=== PATIENT | female | born 1970 | race Caucasian/White ===

== ENCOUNTER 2020-10-05 21:46 | Emergency (ER) | payer SELFPAY ==
--- OUTSIDE RECORDS SUMMARY | 2020-10-05 21:49 | XMS REPORT | Continuity of Care Document ---
:1970 Author Organization [facility] t Address [address] [place] [address] Care Team Providers Name Role Phone Unavailable Unavailable Unavailable Problems Condition Condition Condition Status Onset Resolution Last Treating Co mments Source Name Details Category Date Date Treatment Clinician Date Drug abuse Drug Abuse Problem Active 2017-04 [facility]: [facility] 00 Group Low back Low Back Problem Active 2017-04 [facility] St[facility] 05[facility]: [facility] 00 Group Hyperlipid Hyperlipid Problem Active [facility] emia emia 04-21 da 00:00: [facility] 00 Group Allergies, Adverse Reactions, Alerts Allergy Allergy Status Severity Reaction(s) Onset Inactive Treating Comm ents Source Name Type Date Date Clinician Lipitor Allergy Active [facility] Social History Smoking Status Start Date Stop Date Source Current Every Day Smoker [facility] Medications This patient has no known medications. Vital Signs Vital Name Observation Time Observation Value Comments Source BP Diastolic 2020-09-23 00:00:00 80 mm[Hg] [facility] Height 2020-09-23 00:00:00 63 [in_i] [facility] BMI (Body Mass 2020-09-23 00:00:00 29 kg/m2 [facility] BP Systolic 2020-09-23 00:00:00 129 mm[Hg] [facility] Body Weight 2020-09-23 00:00:00 2615 [oz_av] [facility] BP Diastolic 2019-05-14 00:00:00 71 mm[Hg] [facility] Height 2019-05-14 00:00:00 63 [in_i] [facility] BMI (Body Mass 2019-05-14 00:00:00 26.2 kg/m2 [facility] BP Systolic 2019-05-14 00:00:00 123 mm[Hg] [facility] Body Weight 2019-05-14 00:00:00 2368 [oz_av] [facility] BP Diastolic 2019-05-10 00:00:00 75 mm[Hg] [facility] Height 2019-05-10 00:00:00 63 [in_i] [facility] BMI (Body Mass 2019-05-10 00:00:00 27.4 kg/m2 [facility] BP Systolic 2019-05-10 00:00:00 121 mm[Hg] [facility] Body Weight 2019-05-10 00:00:00 2473 [oz_av] [facility] Procedures Procedure Date / Time Performing Clinician Source Performed MRI, brain, w/o contrast 2020-09-23 00:00:00 [facility] MAMMO, screening, 2020-09-23 00:00:00 [facility], bilateral [facility] Plan of Care Planned Activity Planned Date Details Comments Source Diagnostic Test 2020-09-23 lipid panel, serum [facility] 00:00:00 [code = lipid panel, Group serum] Diagnostic Test 2020-09-23 CMP, serum or plasma [facility]ending 00:00:00 [code = CMP, serum Group or plasma] Diagnostic Test 2020-09-23 CBC w/ auto diff [facility] 00:00:00 [code = CBC w/ auto Group diff] Diagnostic Test 2020-09-23 TSH, serum or plasma [facility] Pending 00:00:00 [code = TSH, serum Group or plasma] Diagnostic Test 2020-09-23 hemoglobin A1c, QN, [facility] 00:00:00 blood [code = Group hemoglobin A1c, QN, blood] Encounters Start End Encounter Admission Attending Care Care Encounter Source Date/Time Date/Time Type Type Clinicians Facility Department ID 2020-09-23 2020-09-23 Quirino KEMP [place] - [id number] [facility] 00:00:00 00:00:00 Sohail Ruth Medical Medical MD: [address] [facility] [address], [place] [address] , Ph. 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 2019-05-10 2019-05-10 Leanne VILA [place] - [id number] [facility] 00:00:00 00:00:00 [facility] Spe[facility] Medical STATIONARY ENGINEER APPRENTICE: [address] [facility] [address], [place] [address] , Ph. Results Test Description Test Time Test Comments Results Result Comments Source rapid strep group A, throat 2019-05-14 12:10:00 Test Item Value Reference Range Interpretation Comme nts Strep Result (test code = Strep Result) [facility] 13:19:00 Test Item Value Reference Range Interpretation Comments Flu (test code = Flu) [facility]10 13:19:00 Test Item Value Reference Range Interpretation Comments Flu (test code = Flu) negative [facility]
[2020-10-05 22:13] LABS: Urine Blood 3+ (Negative); Urine Glucose Negative (Negative); Urine Protein 2+ (Negative); Urine Specific Gravity 1.025 (1.005-1.030); Urine pH 6.5 (5.0-7.0)
[2020-10-05 22:17] LABS: Absolute Lymphocytes (CBC) 2.3 K/uL (0.7-4.9); Basophils % 0.6 % (0-1.3); Lymphocytes % 15.8 % (15.3-44.8); MPV 8.7 fL (7.6-11.3); RBC Red Blood Cell Count 3.98 M/uL (3.86-4.86)
[2020-10-05 22:20] LABS: Urine Specific Gravity/Preg 1.025 (1.005-1.030)
[2020-10-05 22:21] LABS: Urine Bacteria >50 /HPF (<20); Urine RBC <5 /HPF (NONE SEEN)
[2020-10-05] MEDS ORDERED: NA CHLORIDE 0.9% 1,000 ML ONE (22:25)
[2020-10-05] MEDS ORDERED: ONDANSETRON 4 MG/2 ML VIAL ONE (22:25)
[2020-10-05] MEDS ORDERED: KETOROLAC 30 MG/ML INJ ONE (22:25)
[2020-10-05 22:33] LABS: ALT/SGPT 24 U/L (12-78); AST/SGOT 18 U/L (15-37); Albumin 3.7 g/dL (3.4-5.0); Alkaline Phosphatase 75 U/L (45-117); BUN Blood Urea Nitrogen 14 mg/dL (7-18); Bicarbonate 25 mmol/L (21-32); Bilirubin Direct < 0.1 mg/dL (0-0.2); Bilirubin Total 0.4 mg/dL (0.2-1.0); Glucose Level 110 mg/dL (74-106); Lipase 120 U/L (73-393); Protein, Total 7.7 g/dL (6.4-8.2); Sodium Level 137 mmol/L (136-145)
--- NOTE | 2020-10-05 22:48 | EDPHYS ---
Physician Documentation [facility] Name: Comfort Royal Age: 50 yrs Sex: Female : 1970 Arrival Date: 10/05/2020 Time: 21:51 Bed 6 Private MD: ED Physician Hadley Cedeno HPI: 10/06 00:23 This 50 yrs old Female presents to ER via Ambulatory with complaints of kb Abdominal Pain, Back Pain, Nausea. 00:23 The patient has not recently seen a physician. kb 00:24 The patient presents with urinary symptoms, dysuria, frequency. Onset: The kb symptoms/episode began/occurred 3 day(s) ago. Modifying factors: The symptoms are alleviated by nothing, the symptoms are aggravated by urinating. Associated signs and symptoms: Pertinent positives: dysuria, urinary frequency. Severity of symptoms: At their worst the symptoms were moderate, in the emergency department the symptoms are unchanged. The patient has not experienced similar symptoms in the past. Pt reports urinary frequency, dysuria, suprapubic pain and back pain that started Monday. 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 - Social history:: Smoking status: Reported history of juuling and/or vaping. Patient uses alcohol, occasionally. Patient/guardian denies using street drugs. ROS: 10/06 00:22 Constitutional: Negative for fever, chills, and weight loss. kb Abdomen/GI: Positive for abdominal pain, of the suprapubic area. Back: Positive for flank pain, bilaterally. : Positive for urinary symptoms, urinary frequency, burning with urination. All other systems are negative. Exam: 00:23 Constitutional: This is a well developed, well nourished patient who is awake, alert, kb and in no acute distress. Head/Face: Normocephalic, atraumatic. ENT: Moist Mucous membranes Cardiovascular: Regular rate and rhythm with a normal S1 and S2. No gallops, murmurs, or rubs. No pulse deficits. Respiratory: Respirations even and unlabored. No increased work of breathing, no retractions or nasal flaring. Skin: Warm, dry with normal turgor. Normal color. MS/ Extremity: Pulses equal, no cyanosis. Neurovascular intact. Full, normal range of motion. Neuro: Awake and alert, GCS 15, oriented to person, place, time, and situation. Moves all extremities. Normal gait. Psych: Awake, alert, with orientation to person, place and time. Behavior, mood, and affect are within normal limits. 00:23 Abdomen/GI: Inspection: abdomen appears normal, Palpation: soft, in all quadrants, mild abdominal tenderness, in the suprapubic area. 00:23 Back: CVA tenderness, that is mild, is noted bilaterally. Vital Signs: 10/05 21:58 BP 129 / 73; Pulse 95; Resp 16 S; Temp 98.6(O); Pulse Ox 99% on R/A; Weight 73.03 kg bb (R); Height 5 ft. 3 in. (160.02 cm) (R); Pain 9/10; 23:22 BP 113 / 60; Pulse 82; Resp 16 S; Pulse Ox 99% on R/A; ea 21:58 Body Mass Index 28.52 (73.03 kg, 160.02 cm) bb MDM: 21:56 Patient medically screened. kb 10/06 00:20 Data reviewed: vital signs, nurses notes. Data interpreted: Pulse oximetry: on room air kb is 99 %. Interpretation: normal. Counseling: I had a detailed discussion with the patient and/or guardian regarding: the historical points, exam findings, and any diagnostic results supporting the discharge/admit diagnosis, lab results, the need for outpatient follow up, a family practitioner, to return to the emergency department if symptoms worsen or persist or if there are any questions or concerns that arise at home. ED course: Discussed findings with pt. Pt in agreement with plan to use oral antibiotics for UTI, will return for inability to tolerate PO intake/medications, worsening symptoms or any other concerns. . 10/05 22:00 Order name: Urine Microscopic Only; Complete Time: :23 kb 10/05 22:00 Order name: Basic Metabolic Panel; Complete Time: 22:42 kb 10/05 22:00 Order name: CBC with Diff; Complete Time: :23 kb 10/05 22:00 Order name: Hepatic Function; Complete Time: 22:42 kb 10/05 22:00 Order name: Lipase; Complete Time: 22:42 kb 10/05 22:12 Order name: Urine Dipstick-Ancillary EDWV 10/05 22:00 Order name: Urine Dipstick-Ancillary (obtain specimen); Complete Time: 22:16 kb 10/05 22:14 Order name: Urine --Ancillary (enter results); Complete Time: 22:21 mw2 10/05 22:22 Order name: Urine Culture EDWV 10/05 22:00 Order name: IV Saline Lock; Complete Time: 22:15 kb 10/05 22:00 Order name: Labs collected and sent; Complete Time: 22:16 kb Administered Medications: 10/05 22:05 Drug: NS 0.9% 1000 ml Route: IV; Rate: 1000 ml; Site: right antecubital; ea 23:23 Follow up: IV Status: Completed infusion; IV Intake: 1000ml ea 22:06 Drug: Zofran (Ondansetron) 4 mg Route: IVP; Site: right antecubital; ea 23:23 Follow up: Response: No adverse reaction; Nausea is decreased ea 22:07 Drug: TORadol - (ketorolac) 15 mg Route: IVP; Site: right antecubital; ea 23:22 Follow up: Response: No adverse reaction; Pain is decreased ea 22:48 Drug: Rocephin (cefTRIAXone) 1 grams Route: IV; Rate: calculated rate; Site: right ea antecubital; 23:22 Follow up: Response: No adverse reaction; IV Status: Completed infusion ea 22:58 Drug: Pyridium (phenazopyridine) 100 mg Route: PO; ea 23:22 Follow up: Response: No adverse reaction ea Disposition: 10/06 02:03 Co-signature as Attending Physician, Hadley Cedeno MD. pkl Disposition: 10/05/20 22:47 Discharged to Home. Impression: Urinary tract infection, site not specified. - Condition is Stable. - Discharge Instructions: Urinary Tract Infection, Adult, [id number]. - Prescriptions for Augmentin 875- 125 mg Oral Tablet - take 1 tablet by ORAL route every 12 hours for 10 days; 20 tablet. Pyridium 200 mg Oral Tablet - take 1 tablet by ORAL route every 8 hours for 3 days; 9 tablet. - Medication Reconciliation Form, Thank You Letter, Antibiotic Education, Prescription Opioid Use form. - Follow up: Emergency Department; When: As needed; Reason: Worsening of condition. Follow up: Private Physician; When: 2 - 3 days; Reason: Recheck today's complaints, Continuance of care, Re-evaluation by your physician. Signatures: Dispatcher [employer] EDWV Tracy Bahena, Hadley Williamson MD MD pkl Ballard, Brenda, RN RN Melodie Buenrostro RN RN delmar Corrections: (The following items were deleted from the chart) 10/05 23:24 22:47 10/05/2020 22:47 Discharged to Home. Impression: Urinary tract infection, site ea not specified. Condition is Stable. Forms are Medication Reconciliation Form, Thank You Letter, Antibiotic Education, Prescription Opioid Use. Follow up: Emergency Department; When: As needed; Reason: Worsening of condition. Follow up: Private Physician; When: 2 - 3 days; Reason: Recheck today's complaints, Continuance of care, Re-evaluation by your physician. kb
--- NOTE | 2020-10-05 22:48 | ER ---
Nurse's Notes [facility] Name: Comfotr Royal Age: 50 yrs Sex: Female : 1970 Arrival Date: 10/05/2020 Time: 21:51 Bed 6 Private MD: Diagnosis: Urinary tract infection, site not specified Presentation: 10/05 21:58 Chief complaint: Patient states: she started having suprapubic pain on Monday and pain bb with urination now the pain is in her upper abdomen and back and she is nauseous. Coronavirus screen: At this time, the client does not indicate any symptoms associated with coronavirus-19. Ebola Screen: No symptoms or risks identified at this time. Initial Sepsis Screen: Does the patient meet any 2 criteria? No. Patient's initial sepsis screen is negative. Does the patient have a suspected source of infection? No. Patient's initial sepsis screen is negative. Risk Assessment: Do you want to hurt yourself or someone else? Patient reports no desire to harm self or others. Onset of symptoms was October 04, 2020. 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 - Social history:: Smoking status: Reported history of juuling and/or vaping. Patient uses alcohol, occasionally. Patient/guardian denies using street drugs. Screenin:00 Abuse screen: Denies threats or abuse. Nutritional screening: No deficits noted. ea Tuberculosis screening: No symptoms or risk factors identified. 22:00 Fall Risk IV access (20 points). ea Assessment: 22:13 General: Appears uncomfortable, Behavior is calm, cooperative, appropriate for age. ea Pain: Complains of pain in lower abd and paulina flank. Neuro: Level of Consciousness is awake, alert, obeys commands, Oriented to person, place, time, situation, Appropriate for age. Cardiovascular: No deficits noted. Capillary refill < 3 seconds Patient's skin is warm and dry. Respiratory: No deficits noted. Airway is patent Respiratory effort is even, unlabored, Respiratory pattern is regular, symmetrical. GI: Bowel sounds present X 4 quads. Abd is soft and non tender X 4 quads. Reports lower abdominal pain, nausea. : Reports burning with urination, pain in bilateral in suprapubic area flank(s). Derm: Skin is pink, warm \T\ dry. 23:22 Reassessment: Patient appears in no apparent distress at this time. Patient and/or ea family updated on plan of care and expected duration. Pain level reassessed. Patient is alert, oriented x 3, equal unlabored respirations, skin warm/dry/pink. Patient states symptoms have improved. Vital Signs: 21:58 BP 129 / 73; Pulse 95; Resp 16 S; Temp 98.6(O); Pulse Ox 99% on R/A; Weight 73.03 kg bb (R); Height 5 ft. 3 in. (160.02 cm) (R); Pain 9/10; 23:22 BP 113 / 60; Pulse 82; Resp 16 S; Pulse Ox 99% on R/A; ea 21:58 Body Mass Index 28.52 (73.03 kg, 160.02 cm) bb ED Course: 21:51 Patient arrived in ED. as 21:54 Melodie Dodson, MAURICE is Primary Nurse. ea 21:56 Tarcy Bahena FNP-C is PHCP. kb 21:56 Hadley Cedeno MD is Attending Physician. kb 22:00 Triage completed. bb 22:00 Arm band placed on Patient placed in an exam room, on a stretcher, on pulse oximetry. bb Family accompanied patient. 22:00 Patient has correct armband on for positive identification. Bed in low position. Call ea light in reach. Side rails up X2. 22:02 No provider procedures requiring assistance completed. Initial lab(s) drawn, by me, ea sent to lab. Inserted saline lock: 20 gauge in right antecubital area, using aseptic technique. Blood collected. 23:23 IV discontinued, intact, bleeding controlled, No redness/swelling at site. Pressure ea dressing applied. Administered Medications: 22:05 Drug: NS 0.9% 1000 ml Route: IV; Rate: 1000 ml; Site: right antecubital; ea 23:23 Follow up: IV Status: Completed infusion; IV Intake: 1000ml ea 22:06 Drug: Zofran (Ondansetron) 4 mg Route: IVP; Site: right antecubital; ea 23:23 Follow up: Response: No adverse reaction; Nausea is decreased ea 22:07 Drug: TORadol - (ketorolac) 15 mg Route: IVP; Site: right antecubital; ea 23:22 Follow up: Response: No adverse reaction; Pain is decreased ea 22:48 Drug: Rocephin (cefTRIAXone) 1 grams Route: IV; Rate: calculated rate; Site: right ea antecubital; 23:22 Follow up: Response: No adverse reaction; IV Status: Completed infusion ea 22:58 Drug: Pyridium (phenazopyridine) 100 mg Route: PO; ea 23:22 Follow up: Response: No adverse reaction ea Intake: 23:23 IV: 1000ml; Total: 1000ml. ea Outcome: 22:47 Discharge ordered by . kb 23:23 Discharged to home ambulatory, with significant other. ea 23:23 Condition: stable 23:23 Discharge instructions given to patient, Instructed on discharge instructions, follow up and referral plans. medication usage, Demonstrated understanding of instructions, follow-up care, medications, Prescriptions given X 2. 23:24 Patient left the ED. ea Signatures: Tracy Bahena, MARISABELC KINGA-Felecia Tadeo Brenda, RN RN Melodie Buenrostro RN RN ea
[2020-10-05] MEDS ORDERED: NA CHLORIDE 0.9% 50 ML ONE (23:06)
[2020-10-05] MEDS ORDERED: CEFTRIAXONE 1000 MG/VIAL ONE (23:06)
[2020-10-05] MEDS ORDERED: PHENAZOPYRIDINE 100MG TAB PO ONE (23:17)
[2020-10-06 00:28] VITALS: TEMP 98.6; O2SAT 99
[2020-10-06 00:30] VITALS: BP 113/60
== END 2020-10-05 23:24 | disposition home or self-care (01) ==
LOC: ER 21:46
DX: N39.0 Urinary tract infection, site not specified (principal); F17.290 Nicotine dependence, other tobacco product, uncomplicated
CPT/HCPCS: 36415; 80048; 80076; 81003; 81015; 81025; 83690; 85025; 87077; 87086; 87088; 87186; 96361; 96365; 96375; 99284; J2405; J7030

== ENCOUNTER 2021-10-28 19:08 | Emergency (ER) | payer SELFPAY ==
[2021-10-28] MEDS ORDERED: dexAMETHasone 10 MG/ML VIAL ONE (20:47)
[2021-10-28] MEDS ORDERED: NA CHLORIDE 0.9% 1,000 ML ONE (20:48)
[2021-10-28] MEDS ORDERED: DIPHENHYDRAMINE 50 MG/ML VIAL ONE (20:49)
[2021-10-28] MEDS ORDERED: METOCLOPRAMIDE 10 MG/2mL INJ ONE (20:51)
[2021-10-28 21:14] LABS: Absolute Lymphocytes (CBC) 0.7 K/uL (0.7-4.9); Hematocrit 37.3 % (36.0-45.0); Lymphocytes % 18.3 % (15.3-44.8); MCV 88.6 fL (80-100); MPV 8.2 fL (7.6-11.3)
[2021-10-28 21:15] LABS: Protime INR 1.09
[2021-10-28 21:24] LABS: Potassium 3.5 mmol/L (3.5-5.1)
[2021-10-28] MEDS ORDERED: OSELTAMIVIR 75 MG CAP ONE (21:53)
[2021-10-28] MEDS ORDERED: BEBTELOVIMAB 175 MG/2 ML VIAL IV ONE (21:54)
--- NOTE | 2021-10-28 22:30 | EDPHYS ---
Physician Documentation [facility] Name: Comfort Royal Age: 51 yrs Sex: Female : 1970 Arrival Date: 10/28/2021 Time: 19:09 Bed 2 Private MD: ED Physician Ino Horton HPI: 10/28 20:35 This 51 yrs old Female presents to ER via Ambulatory with complaints of Decreased cp Appetite, Headache. 20:35 The patient complains of pain to the top of head, forehead, right spiritism and left cp spiritism. The patient describes the headache as aching, constant. Onset: The symptoms/episode began/occurred this morning. Associated signs and symptoms: Pertinent positives: fever, nausea, body aches, Pertinent negatives: altered mental status, neck stiffness, paresthesias, vision changes. Severity of symptoms: in the emergency department the pain is unchanged, despite home interventions. 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 - Social history:: Smoking status: Patient denies any tobacco usage or history of. ROS: 20:40 Constitutional: Positive for body aches, poor PO intake, Negative for fever. cp 20:40 Eyes: Negative for injury, pain, redness, and discharge. cp 20:40 ENT: Positive for sore throat, Negative for drainage from ear(s), ear pain, difficulty swallowing, difficulty handling secretions. 20:40 Cardiovascular: Negative for chest pain. 20:40 Respiratory: Negative for cough, shortness of breath, wheezing. 20:40 Abdomen/GI: Positive for nausea, Negative for abdominal pain, vomiting, diarrhea, constipation. 20:40 Skin: Negative for rash. 20:40 Neuro: Positive for headache, Negative for altered mental status, weakness. 20:40 All other systems are negative. Exam: 20:45 Constitutional: The patient appears in no acute distress, alert, awake, non-toxic, well cp developed, well nourished, uncomfortable. 20:45 Head/Face: Normocephalic, atraumatic. cp 20:45 Eyes: Periorbital structures: appear normal, Pupils: equal, round, and reactive to light and accomodation, Extraocular movements: intact throughout, Conjunctiva: normal, no exudate, no injection, Sclera: no appreciated abnormality, Lids and lashes: appear normal, bilaterally. 20:45 ENT: External ear(s): are unremarkable, Ear canal(s): are normal, clear, TM's: dullness, bilaterally, Nose: is normal, Mouth: Lips: moist, Oral mucosa: pink and intact, moist, Posterior pharynx: Airway: no evidence of obstruction, patent, Tonsils: are normal in appearance, swelling, is not appreciated, erythema, that is mild, exudate, is not appreciated. 20:45 Neck: ROM/movement: is normal, is supple, without pain, no range of motions limitations, no meningismus, Lymph nodes: no appreciated lymphadenopathy. 20:45 Chest/axilla: Inspection: normal. 20:45 Cardiovascular: Rate: normal, Rhythm: regular. 20:45 Respiratory: the patient does not display signs of respiratory distress, Respirations: normal, no use of accessory muscles, no retractions, labored breathing, is not present, Breath sounds: are clear throughout, no decreased breath sounds, no stridor, no wheezing. 20:45 Abdomen/GI: Inspection: abdomen appears normal, Palpation: abdomen is soft and non-tender, in all quadrants. 20:45 Back: pain, is absent, ROM is normal. 20:45 Skin: cellulitis, is not appreciated, no rash present. 20:45 Neuro: Orientation: to person, place \T\ time. Mentation: is normal, Cerebellar function: is grossly normal, Motor: moves all fours, strength is normal, Sensation: is normal. Vital Signs: 19:29 BP 123 / 75; Pulse 94; Resp 19; Temp 99.1; Pulse Ox 98% on R/A; Weight 72.57 kg; Height kd3 5 ft. 4 in. (162.56 cm); Pain 8/10; 20:05 BP 113 / 63; Pulse 84; Resp 16 S; Temp 99.7(O); Pulse Ox 99% on R/A; aa9 19:29 Body Mass Index 27.46 (72.57 kg, 162.56 cm) kd3 MDM: 20:10 Patient medically screened. 22:28 Data reviewed: vital signs, nurses notes, lab test result(s). 22:28 Differential diagnosis: meningitis, meningoencephalitis, migraine, tension headache, cp COVID-19, influenza, strep throat. Counseling: I had a detailed discussion with the patient and/or guardian regarding: the historical points, exam findings, and any diagnostic results supporting the discharge/admit diagnosis, lab results, to return to the emergency department if symptoms worsen or persist or if there are any questions or concerns that arise at home. Response to treatment: the patient's symptoms have markedly improved after treatment. 22:28 ED course: VSS. Patient appears non-toxic and no signs of respiratory distress. Will cp discharge to home for continued monitoring. 10/28 19:39 Order name: Flu; Complete Time: 20:29 kd3 10/28 20:29 Interpretation: Normal except: FLUB FLU B ----- POSITIVE for FLU B protein antigen. 10/28 19:39 Order name: Strep; Complete Time: 21:18 kd3 10/28 20:10 Order name: SARS-COV-2 RT PCR; Complete Time: 21:18 [facility] 10/28 21:18 Interpretation: Results reviewed. 10/28 20:31 Order name: CBC with Diff; Complete Time: 15:05 10/28 21:21 Interpretation: Normal except: WBC 3.8; MN% 27.9. 10/28 20:31 Order name: BMP; Complete Time: 21:48 10/28 21:48 Interpretation: Normal except: NA 135; GFR 73. 10/28 20:31 Order name: PT-INR; Complete Time: 21:18 10/28 20:36 Order name: Throat Culture EDDE 10/28 20:31 Order name: IV; Complete Time: 21:06 cp Administered Medications: 21:03 Drug: Reglan (metoCLOPramide) 10 mg Route: IVP; Site: left antecubital; aa9 21:08 Follow up: Response: No adverse reaction aa9 21:03 Drug: Benadryl (diphenhydrAMINE) 12.5 mg Route: IVP; Site: left antecubital; aa9 21:08 Follow up: Response: No adverse reaction aa9 21:03 Drug: Decadron - Dexamethasone 10 mg Route: IVP; Site: left antecubital; aa9 21:07 Follow up: Response: No adverse reaction aa9 21:04 Drug: NS 0.9% 1000 ml Route: IV; Rate: 1 bolus; Site: left antecubital; aa9 23:22 Follow up: Response: No adverse reaction; IV Status: Completed infusion; IV Intake: aa9 1000ml 21:50 Drug: Tamiflu (oseltamivir) 75 mg Route: PO; aa9 23:21 Follow up: Response: No adverse reaction aa9 21:51 Drug: bebtelovimab 175 mg Route: IV; Rate: calculated rate; Site: left antecubital; aa9 23:21 Follow up: Response: No adverse reaction; IV Status: Completed infusion aa9 Disposition Summary: 10/28/21 22:29 Discharge Ordered Location: Home cp Problem: new cp Symptoms: have improved cp Condition: Stable cp Diagnosis - SARS-associated coronavirus as the cause of diseases classified elsewhere cp - Influenza due to other identified influenza virus with other manifestations cp - Headache cp Followup: cp - With: Private Physician - When: 1 - 2 days - Reason: Worsening of condition Discharge Instructions: - Discharge Summary Sheet cp - Influenza, Adult cp - Aspirin and Your Heart cp - COVID-19 cp - COVID-19: What Your Test Results Mean - [facility] cp - Form - Excuse from Work, School, or Physical Activity cp - Things to Know about the COVID-19 Pandemic - [facility] cp - 10 Things You Can Do to Manage Your COVID-19 Symptoms at Home - [facility] cp - COVID-19: Quarantine vs. Isolation - [facility] cp - Prevent the Spread of COVID-19 if You Are Sick - [facility] cp Forms: - Medication Reconciliation Form cp - Thank You Letter cp - Antibiotic Education cp - Prescription Opioid Use cp Prescriptions: - Ibuprofen 800 mg Oral Tablet - take 1 tablet by ORAL route every 8 hours As needed take with food; 30 tablet; cp Refills: 0, Product Selection Permitted - Zofran 4 mg Oral Tablet - take 1 tablet by ORAL route every 12 hours As needed; 20 tablet; Refills: 0, cp Product Selection Permitted - Tamiflu 75 mg Oral Capsule - take 1 tablet by ORAL route every 12 hours for 5 days; 10 tablet; Refills: 0, cp Product Selection Permitted Addendum: 10/30/2021 07:23 Co-signature as Attending Physician, Ino Horton MD. m Signatures: Dispatcher [employer] EDMS Bjorn Cochran, ELLIOTT PA cp Ino Horton MD MD [id number] Grisel Quintanilla RN RN kd3 Trina Fernandez RN RN aa9 Corrections: (The following items were deleted from the chart) 10/28 20:10 19:40 COVID 19 CPL+MR.LAB.BRZ ordered. EDMS EDMS 21:21 21:21 Normal except: WBC 3.8. cp cp 10/29 15:07 10/28 20:35 Associated signs and symptoms: Pertinent positives: fever, nausea, cp vomiting, body aches, Pertinent negatives: altered mental status, neck stiffness, paresthesias, vision changes, cp
--- NOTE | 2021-10-28 22:30 | ER ---
Nurse's Notes [facility] Name: Comfort Royal Age: 51 yrs Sex: Female : 1970 Arrival Date: 10/28/2021 Time: 19:09 Bed 2 Private MD: Diagnosis: SARS-associated coronavirus as the cause of diseases classified elsewhere;Influenza due to other identified influenza virus with other manifestations;Headache Presentation: 10/28 19:29 Chief complaint: Patient states: I have a headache, I can't eat, I can't drink. I ache kd3 all over. I was fine yesterday but I woke up like this. my temp was 102 this morning. Coronavirus screen: Vaccine status: Patient reports being unvaccinated. Ebola Screen: No symptoms or risks identified at this time. Initial Sepsis Screen: Does the patient meet any 2 criteria? No. Patient's initial sepsis screen is negative. Does the patient have a suspected source of infection? No. Patient's initial sepsis screen is negative. Risk Assessment: Do you want to hurt yourself or someone else? Patient reports no desire to harm self or others. Onset of symptoms was October 28, 2021. 19:29 Method Of Arrival: Ambulatory kd3 19:29 Acuity: AIDAN 3 kd3 Triage Assessment: 19:32 Headache History: Denies prior headaches. General: Appears uncomfortable, Behavior is kd3 cooperative. Pain: Pain currently is 8 out of 10 on a pain scale. Pain began gradually, Also complains of decreased appetite, nausea. Neuro: Level of Consciousness is awake, alert, obeys commands, Oriented to person, place, time, situation. 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 - Social history:: Smoking status: Patient denies any tobacco usage or history of. Screenin:02 Abuse screen: Denies threats or abuse. Denies injuries from another. Nutritional aa9 screening: No deficits noted. Tuberculosis screening: No symptoms or risk factors identified. Fall Risk None identified. Assessment: 19:59 General: Appears in no apparent distress. uncomfortable, Behavior is calm, cooperative, aa9 anxious. General: States, "I feel nauseous when I try to eat or drink, I haven't eaten anything. My head feels like its throbbing. This all started this morning. I took Ibuprofen this morning with no relief. I had a temperature of 102F this morning.". Pain: Complains of pain in face Pain currently is 8 out of 10 on a pain scale. Alleviated by rest. Pain: Quality of pain is described as throbbing. 19:59 Pain: Complains of pain in neck. aa9 21:50 Reassessment:. ld1 Vital Signs: 19:29 BP 123 / 75; Pulse 94; Resp 19; Temp 99.1; Pulse Ox 98% on R/A; Weight 72.57 kg; Height kd3 5 ft. 4 in. (162.56 cm); Pain 8/10; 20:05 BP 113 / 63; Pulse 84; Resp 16 S; Temp 99.7(O); Pulse Ox 99% on R/A; aa9 19:29 Body Mass Index 27.46 (72.57 kg, 162.56 cm) kd3 ED Course: 19:09 Patient arrived in ED. as 19:32 Triage completed. kd3 19:32 Arm band placed on left wrist. kd3 19:56 Carlos Solis, RN is Primary Nurse. as6 20:02 Bjorn Cochran PA is PHCP. cp 20:02 Tomer Patel MD is Attending Physician. cp 20:02 Patient has correct armband on for positive identification. Bed in low position. Call aa9 light in reach. 20:03 Strep Sent. kd3 20:03 Flu Sent. kd3 20:10 SARS-COV-2 RT PCR Sent. aa9 20:10 Strep Sent. aa9 20:10 Flu Sent. aa9 21:05 Notified ED physician of a critical lab result(s). Covid +. tw5 21:05 Inserted saline lock: 18 gauge in left antecubital area, using aseptic technique. Blood aa9 collected. 21:06 PT-INR Sent. aa9 21:06 CBC with Diff Sent. aa9 21:06 BMP Sent. aa9 21:16 Primary Nurse role handed off by Carlos Solis RN as6 21:18 Ino Horton MD is Attending Physician. cp 21:32 Trina Fernandez, MAURICE is Primary Nurse. aa9 23:20 No provider procedures requiring assistance completed. IV discontinued, intact, aa9 bleeding controlled, No redness/swelling at site. Pressure dressing applied. Administered Medications: 21:03 Drug: Reglan (metoCLOPramide) 10 mg Route: IVP; Site: left antecubital; aa9 21:08 Follow up: Response: No adverse reaction aa9 21:03 Drug: Benadryl (diphenhydrAMINE) 12.5 mg Route: IVP; Site: left antecubital; aa9 21:08 Follow up: Response: No adverse reaction aa9 21:03 Drug: Decadron - Dexamethasone 10 mg Route: IVP; Site: left antecubital; aa9 21:07 Follow up: Response: No adverse reaction aa9 21:04 Drug: NS 0.9% 1000 ml Route: IV; Rate: 1 bolus; Site: left antecubital; aa9 23:22 Follow up: Response: No adverse reaction; IV Status: Completed infusion; IV Intake: aa9 1000ml 21:50 Drug: Tamiflu (oseltamivir) 75 mg Route: PO; aa9 23:21 Follow up: Response: No adverse reaction aa9 21:51 Drug: bebtelovimab 175 mg Route: IV; Rate: calculated rate; Site: left antecubital; aa9 23:21 Follow up: Response: No adverse reaction; IV Status: Completed infusion aa9 Medication: 23:21 VIS not applicable for this client. aa9 Intake: 23:22 IV: 1000ml; Total: 1000ml. aa9 Outcome: 22:29 Discharge ordered by MD. cp 22:40 Patient left the ED. aa9 23:21 Discharged to home ambulatory. aa9 23:21 Condition: stable 23:21 Discharge instructions given to patient, significant other, Instructed on discharge instructions, follow up and referral plans. medication usage, Demonstrated understanding of instructions, follow-up care, medications, Prescriptions given X 3. Signatures: Felecia Santos as Bjorn Cochran PA PA cp Tamara Sharma RN RN ld1 Jaimie Platt tw5 Carlos Solis RN RN as6 Grisel Quintanilla RN RN kd3 Trina Fernandez, RN RN aa9 Corrections: (The following items were deleted from the chart) 20:04 19:59 General: States, "I feel nauseous when I try to eat or drink, I haven't eaten aa9 anything. My head feels like its throbbing. This all started this morning.". aa9 20:08 19:59 General: States, "I feel nauseous when I try to eat or drink, I haven't eaten aa9 anything. My head feels like its throbbing. This all started this morning. I took Ibuprofen this morning with no relief.". aa9 20:10 19:59 General: States, "I feel nauseous when I try to eat or drink, I haven't eaten aa9 anything. My head feels like its throbbing. This all started this morning. I took Ibuprofen this morning with no relief.". aa9 20: 20:03 COVID 19 CPL+MR.LEXX drawn and sent. kd3 EDMS
[2021-10-28 23:11] VITALS: BP 113/63; TEMP 99.7; O2SAT 99
[2021-10-28 23:23] LABS: Blood Morphology Comment NOT SEEN (NOT SEEN); Platelet Estimate ADEQ
== END 2021-10-28 22:40 | disposition home or self-care (01) ==
LOC: ER 19:08
DX: U07.1 COVID-19 (principal); J10.89 Influenza due to other identified influenza virus with other manifestations
CPT/HCPCS: 36415; 80048; 85025; 85610; 87070; 87081; 87804; 99284; J1100; J1200; J2765; J7030; U0003